=== PATIENT | female | born 1995 | race Caucasian/White ===

== ENCOUNTER 2018-05-26 | Inpatient (IN) | payer BC, OTHER ==
[2018-05-26] MEDS ORDERED: LIDOCAINE 0.5% (PF) 5 MG/ML (50 ML SDV) SQ PRN (00:22)
[2018-05-26] MEDS ORDERED: METHYLERGONOVINE 0.2 MG/ML 1 ML AMP IM PRN (00:22)
[2018-05-26] MEDS ORDERED: OXYTOCIN 10 UNIT/ML 1 ML VIAL IM PRN (00:22)
[2018-05-26] MEDS ORDERED: CARBOPROST TROMETHAMINE 250 MCG/ML 1 ML AMP IM PRN (00:22)
[2018-05-26] MEDS ORDERED: TERBUTALINE 1 MG/ML VIAL SQ PRN (00:22)
[2018-05-26] MEDS ORDERED: OXYTOCIN 30 UNITS/500 ML NS 30 UNIT in SALINE 1 500ML.BAG IV SCH (00:30)
[2018-05-26] MEDS: LACTATED RINGERS 1,000 ML IV SCH ×3 (00:56→10:13)
[2018-05-26 01:04] VITALS: BMI 30.9
[2018-05-26 01:06] LABS: Appearance,Urine Cloudy (Clear); Bilirubin,Urine Negative (Negative); Blood,Urine Negative (Negative); Color,Urine Yellow; Glucose,Urine (UA) Negative (Negative); Ketones,Urine Negative (Negative); Leukocyte Esterase,Urine Trace (Negative); Mucus,Urine Occasional /hpf; Nitrite,Urine Negative (Negative); Protein,Urine Negative (Negative); RBC,Urine 1 /hpf (0-5); Specific Gravity,Urine 1.011 (1.001-1.035); Squamous Epithelial Cell,Urine 2 /hpf (0-4); Urobilinogen,Urine <2.0 mg/dL (<2.0); WBC,Urine 5 /hpf (0-5)
[2018-05-26 01:07] LABS: Basophils # (A) 0.1 k/uL (0-0.2); Basophils % (A) 0 %; Eosinophils # (A) 0.1 k/uL (0-0.7); Eosinophils % (A) 1 %; HCT 38.2 % (34.0-46.0); HGB 12.4 gm/dL (11.4-16.0); Lymphocytes # (A) 2.2 k/uL (1.0-4.8); Lymphocytes % (A) 16 %; MCHC 32.3 g/dL (31.0-37.0); MCV 89.6 fL (80.0-100.0); Mean Platelet Volume 10.6; Monocytes # (A) 0.8 k/uL (0-1.0); Monocytes % (A) 6 %; Neutrophils # (A) 10.5 k/uL (1.3-7.7); Neutrophils % (A) 76 %; Platelet Count 165 k/uL (150-450); RBC 4.27 m/uL (3.80-5.40); RDW 13.8 % (11.5-15.5); WBC 13.9 k/uL (3.8-10.6)
[2018-05-26 01:12] LABS: ALT 25 U/L (9-52); AST 19 U/L (14-36); Blood Urea Nitrogen 5 mg/dL (7-17); LDH 418 U/L (313-618); Uric Acid 3.8 mg/dL (3.7-7.4)
[2018-05-26 01:13] LABS: INR 0.8 (<1.2); Partial Thromboplastin Time 24.2 sec (22.0-30.0); Prothrombin Time 9.3 sec (9.0-12.0)
--- NOTE | 2018-05-26 01:24 | P.HPOB ---
History of Present Illness H&P Date: 05/26/18 Chief Complaint: Leaking fluid. Oligohydramnios This patient is a 22-year-old 1 para 0 female estimated date of confinement 06/03/2018 estimated gestational age 38-6/7 weeks who presents to labor and delivery with complaints of leaking of fluid at 10:30 this evening. Patient's care is per Dr. Mendez and is complicated by oligohydramnios of unknown etiology. Patient had an ultrasound done last that showed an amniotic fluid at 4.1. Patient denies leaking of fluid prior to this evening. is otherwise been uncomplicated. Review of Systems Genitourinary: Reports Menstruation: Reports amenorrhea Past Medical History Past Medical History: No Reported History History of Any Multi-Drug Resistant Organisms: None Reported Past Surgical History: No Surgical Hx Reported Past Anesthesia/Blood Transfusion Reactions: No Reported Reaction Past Psychological History: Anxiety, Depression Smoking Status: Never smoker Past Alcohol Use History: None Reported Past Drug Use History: None Reported - Past Family History Mother Family Medical History: No Reported History Medications and Allergies Home Medications Medication Instructions Recorded Confirmed Type Pnv,Calcium 72/Iron/Folic Acid 1 each PO DAILY 05/26/18 05/26/18 History [ Plus Tablet] Allergies Allergy/AdvReac Type Severity Reaction Status Date / Time Penicillins Allergy Intermediate Rash/Hives Verified 05/26/18 00:21 sulfamethoxazole Allergy Intermediate Vomiting Verified 05/26/18 00:21 [From Bactrim] trimethoprim [From Bactrim] Allergy Intermediate Vomiting Verified 05/26/18 00:21 Exam Vital Signs Temp Pulse Resp BP Pulse Ox 05/26/18 00:27 97.7 F 94 16 151/90 98 Intake and Output 05/25/18 05/25/18 05/26/18 14:59 22:59 06:59 Other: Weight 79.379 kg - OBG Physical Exam Abdomen: bowel sounds normal, no diffuse tenderness, no bruit present, no guarding noted, no hepatomegaly, no splenomegaly, no mass Vulva: both: normal Vagina: normal moisture, no discharge Cervix: no lesion (Cervix is 1 cm and thick.), no discharge Uterus: enlarged (Fundal height most recently in the office was 35 cm) Results Blood type is O positive, rubella immune, RPR nonreactive, hepatitis B is negative, group B strep was negative, ultrasound was shown normal anatomy and oligohydramnios as above. Result Diagrams: 05/26/18 00:56 05/26/18 00:56 Abnormal Lab Results - Last 24 Hours (Table) 05/26/18 05/26/18 05/26/18 Range/Units 00:14 00:56 00:56 WBC 13.9 H (3.8-10.6) k/uL Neutrophils # 10.5 H (1.3-7.7) k/uL BUN 5 L (7-17) mg/dL Creatinine 0.38 L (0.52-1.04) mg/dL Urine Appearance Cloudy H (Clear) Ur Leukocyte Esterase Trace H (Negative) Urine Mucus Occasional H (None) /hpf Assessment and Plan Assessment: This is a pleasant 22-year-old 1 para 0 female 38-6/7 weeks gestation with premature rupture membranes and known oligohydramnios. Patient is not having any significant contractions and therefore we'll proceed with induction of labor with Pitocin per protocol. heart tones are category 1 at this time. We anticipate vaginal delivery. Patient did have one elevated blood pressure on admission therefore I am going to send preeclampsia blood work however there her blood pressure sense of been normal. (1) 39 weeks gestation of Current Visit: Yes Status: Acute Code(s): Z3A.39 - 39 WEEKS GESTATION OF SNOMED Code(s): 06740356 (2) Oligohydramnios Current Visit: Yes Status: Acute Code(s): O41.00X0 - OLIGOHYDRAMNIOS, UNSP TRIMESTER, NOT APPLICABLE OR UNSP SNOMED Code(s): 52403179 (3) Premature rupture of membranes Current Visit: Yes Status: Acute Code(s): O42.90 - CAITLIN ROM, 7TH0 BETW RUPT & ONST LABR, UNSP WEEKS OF GEST SNOMED Code(s): 63990920
[2018-05-26] MEDS ORDERED: BUTORPHANOL 1 MG/ML 1 ML VIAL IV PRN (01:54)
--- NOTE | 2018-05-26 07:23 | P.PN ---
Progress Note - Text Progress Note Date: 05/26/18 Patient is having increased pain from her contractions. heart tones are category 1. Cervix is 2/80/ -2. She is having increased vaginal bleeding at this time is considered bloody show however we will continue to monitor her closely.
--- NOTE | 2018-05-26 07:40 | P.MSEPDOC ---
Presenting Problems - Arrival Data Date of Arrival on Unit: 05/26/18 Time of Arrival on Unit: 00:00 Mode of Transport: Wheelchair - Complaint OB-Reason for Admission/Chief Complaint: Rule Out SROM Medical History - Information : 1 Para: 0 Term: 0 : 0 Abortions: Spontaneous or Elective: 0 Number of Living Children: 0 - Gestational Age Gestational Age by ADI (wks/days): 38 Weeks and 6 Days Review of Systems - Review of Systems Constitutional: No problems Breast: No problems ENT: No problems Cardiovascular: No problems Respiratory: No problems Gastrointestinal: No problems Genitourinary: No problems Musculoskeletal: No problems Neurological: No problems Skin: No problems Vital Signs - Temperature Temperature: 97.7 F Temperature Source: Temporal Artery Scan - Pulse Right Brachial Pulse Rate: 94 Pulse Assessment Method: Automatic Cuff - Respirations Respiratory Rate: 16 Oxygen Delivery Method: Room Air O2 Sat by Pulse Oximetry: 98 - Blood Pressure Right Arm Blood Pressure: 151/90 Blood Pressure Mean: 110 Blood Pressure Source: Automatic Cuff Medical Screen Scoring (Pre) - Cervical Exam Dilation: 1-3 cm = 1 Membranes: Ruptured = 3 - Uterine Contractions Frequency: > 5 minutes apart = 1 Duration: N/A Intensity: N/A - Maternal Vital Signs Maternal Temperature: N/A Maternal Blood Pressure: N/A Signs of Preeclampsia: N/A Maternal Respirations: N/A - Pain Assessment Pain Location and Character: Lower, Abdomen Pain Scale Used: Numeric (1 - 10) Pain Intensity: 1 Pain Description: Cramping Pain Frequency: Intermittent Pain Duration Units: Minutes Pain Behavior: None Exhibited - Maternal Trauma Maternal Trauma: N/A - Assessment Baseline FHR: 140 Heart Rate - NICHD Category: Category I (Normal) = 0 NST: Reactive Position: N/A Station: N/A - Total Score Total Score (Pre): 5 - Level of Risk Level of Risk: Low (0-5) Physician Notification (Pre) - Physician Notified Physician Notified Date: 05/26/18 Physician Notified Time: 00:27 Physician/Practitioner Notifed:: Dr. Griffin Spoke With: Dr. Griffin New Order Received: Yes - Notification Comment Comment: Dr. Griffin given report on pt in tr. Pt c/o. Positive amnisure. Reactive nst. VS with bp of 151/90, 124/81. GBS NEG. MEY level of 4.1 per pt after apt on . Vag. exam of /-2. Orders recieved to admit pt. To obtain PIH labs. To start pitocin. Disposition - Disposition OB Disposition: Admit, LDRP Suite I agree with the RN Medical Screening Exam: Yes Risk & Benefit of care provided described in d/c instruction: Yes Diagnosis: FULL-TERM CAITLIN ROM, ONSET LABOR WITHIN 24 HOURS OF RUPTURE
[2018-05-26] MEDS ORDERED: fentaNYL (PF) 50 MCG/ML 5 ML AMP ONE (10:32)
[2018-05-26] MEDS ORDERED: ROPIVACAINE 5MG/ML 20ML VIAL ONE (10:32)
[2018-05-26] MEDS ORDERED: SODIUM CHLORIDE 0.9% 100 ML BAG ONE (10:32)
[2018-05-26] MEDS ORDERED: CLINDAMYCIN 900 MG in DEXTROSE 5% IN WATER 50 ML IVPB SCH ×2 (14:15)
[2018-05-26] MEDS ORDERED: HYDROCORTISONE 2.5% RECTAL CREAM 30 GM TUBE RECTAL PRN (16:45)
[2018-05-26] MEDS ORDERED: WITCH HAZEL 1 EACH MED..PAD TOPICAL PRN (16:45)
[2018-05-26] MEDS ORDERED: ACETAMINOPHEN TAB 325 MG TAB PO PRN (16:45)
[2018-05-26] MEDS ORDERED: BISACODYL 10 MG SUPP RECTAL PRN (16:45)
[2018-05-26] MEDS ORDERED: diphenhydrAMINE 25 MG CAP PO PRN (16:45)
[2018-05-26] MEDS ORDERED: LANOLIN CREAM 5 GM TUBE TOPICAL PRN (16:45)
[2018-05-26] MEDS ORDERED: diphenhydrAMINE 50 MG/ML 1 ML VIAL IVP PRN (16:45)
[2018-05-26] MEDS ORDERED: ZOLPIDEM 5 MG TAB PO PRN (16:45)
[2018-05-26] MEDS ORDERED: OXYTOCIN 20 UNITS/1000 ML NS 1,000 ML IV SCH (16:45)
[2018-05-26] MEDS ORDERED: BENZOCAINE/MENTHOL SPRAY 1 GM/SPRAY AEROSOL TOPICAL PRN (16:45)
[2018-05-26] MEDS ORDERED: SIMETHICONE 80 MG CHEWABLE PO PRN (16:45)
--- NOTE | 2018-05-26 16:52 | P.PROBDLV ---
Vaginal Delivery Note - . Vaginal Delivery Note: Normal vaginal delivery viable female Apgars 9 and 9 delivery time is 1625 hrs. Please see dictated H&P for intimate details of this patient's admission. Brief summary this is a pleasant 22-year-old 1 para 0 female 38-6/7 weeks gestation admitted to labor and delivery with complaints of leaking of fluid. Patient is a positive amnio sure. Patient is 1 cm and thick and has Pitocin induction of labor per protocol. Patient's labor progresses quite slowly however when she gets to 4 cm she does have an epidural placed with good relief of pain. Patient was given one dose of clindamycin due to prolonged rupture membranes. Labor progresses quickly after 5 cm and she got to complete. Patient that time did have some variable decelerations but these resolved with position changes. Patient was complete and encouraged her to push she pushed for approximately 4 times pushes the head to the perineum. Variables become deeper at this time and therefore a midline episiotomy is made. We have controlled delivery of the infant's head over the perineum. Mouth and nares are bulb suctioned. There is a nuchal cord which is reduced. Gentle downward traction we then have delivery the anterior and posterior shoulder and rest this infant's body. This is a vigorous viable female infant Apgars are 9 and 9 delivery time was 1625 hrs. Infant is late on the mother's abdomen and after the cord is done pulsating is doubly clamped and cut. The cord does appear to be quite thin. Does appear to be trivascular. The placenta is then spontaneously delivered intact and it appears to have a marginal cord insertion. Placenta sent to pathology. Inspection of perineum shows a first-degree lacerations repaired with 3-0 Vicryl usual fashion excellent reapproximation is noted. Estimated blood loss is 100 mL. There are no complications. and mother stable in delivery room.
[2018-05-26] MEDS: IBUPROFEN 600 MG TAB PO PRN (19:58)
[2018-05-26] MEDS: SENNOSIDES-DOCUSATE SODIUM 1 EACH TAB PO SCH (19:59)
[2018-05-27 06:43] LABS: Basophils % (A) 0 %; Eosinophils # (A) 0.3 k/uL (0-0.7); Eosinophils % (A) 2 %; HCT 33.8 % (34.0-46.0); HGB 11.1 gm/dL (11.4-16.0); Lymphocytes # (A) 2.1 k/uL (1.0-4.8); Lymphocytes % (A) 11 %; MCH 29.5 pg (25.0-35.0); MCHC 32.8 g/dL (31.0-37.0); MCV 89.8 fL (80.0-100.0); Mean Platelet Volume 10.2; Monocytes # (A) 1.1 k/uL (0-1.0); Monocytes % (A) 6 %; Neutrophils # (A) 14.8 k/uL (1.3-7.7); Neutrophils % (A) 80 %; Platelet Count 135 k/uL (150-450); RBC 3.77 m/uL (3.80-5.40); RDW 14.2 % (11.5-15.5); WBC 18.5 k/uL (3.8-10.6)
--- NOTE | 2018-05-27 08:46 | P.DS ---
Providers Date of admission: 05/26/18 00:37 Expected date of discharge: 05/27/18 Attending physician: Napoleon Griffin Primary care physician: Carmen Mendez [facility] Course: This is a 22-year-old female 1 para 0 at 38-6/7 weeks who presents with spontaneous rupture of membranes on 05/26/2018. She underwent oxytocin augmentation of labor and did receive 1 dose of antibiotic due to prolonged rupture of membranes. She delivered vaginally a viable female on 05/26/2018 with scores of 9 at 1 minute and 9 at 5 minutes and weight of 6 lbs. 0 oz. Her course has been uncomplicated. She is breast-feeding. Lochia is decreasing. Pain is well-controlled with ibuprofen. Her vital signs are stable. Abdomen is soft with fundus firm and nontender. Extremities show negative Homans. Impression is status post vaginal delivery day #1. Plan is to discharge home today. Routine instructions are given. She will be given a prescription for ibuprofen and a breast pump. She is advised to call the office if she has any further questions or concerns prior to her appointment time. She is advised to follow up in the office in 6 weeks. Procedures: Oxytocin augmentation of labor Spontaneous vaginal delivery of a viable female infant on 05/26/2018 Patient Condition at Discharge: Stable Plan - Discharge Summary New Discharge Prescriptions: New Ibuprofen [Motrin] 600 mg PO Q6HR PRN #60 tab PRN Reason: Mild Pain Or Fever >= 100.5 Continue Pnv,Calcium 72/Iron/Folic Acid [ Plus Tablet] 1 each PO DAILY Discharge Medication List Pnv,Calcium 72/Iron/Folic Acid [ Plus Tablet] 1 each PO DAILY 05/26/18 [History] Ibuprofen [Motrin] 600 mg PO Q6HR PRN #60 tab 05/27/18 [Rx] Follow up Appointment(s)/Referral(s): Carmen Mendez DO [Primary Care Provider] - 6 Weeks Activity/Diet/Wound Care/Special Instructions: Instructions 1. Do not begin any exercise program for 3 weeks. 2. Do not resume sexual relations for 3 weeks or longer if uncomfortable. 3. You may take tub baths or showers at any time. 4. You may use tampons if desired after 3 weeks. 5. Keep the area of episiotomy (stitches) clean and dry. 6. If you are not nursing, wear a good fitting, supportive bra during the day and limit fluid intake for at least 1 week to prevent breast engorgement. 7. Call the office, [phone], within the next week to make appointment for your 6 week checkup if it has not already been made. 8. Report any of the following occurrences to the doctor promptly: a. Heavy, excessive bleeding b. Chills, fever c. Burning or frequency of urination d. Pain or redness and breasts if nursing e. Increasing pain or swelling in episiotomy (stitches). In addition to the above instructions, the following additional should be followed: 1. No heavy lifting or straining (exercising) until after 6 week checkup. 2. Keep abdominal incision clean and dry: You may wear a dressing if more comfortable. 3. Make office appointment for 10 days after going home or as instructed by her doctor. Discharge Disposition: HOME SELF-CARE
[2018-05-27] MEDS: SENNOSIDES-DOCUSATE SODIUM 1 EACH TAB PO SCH ×2 (10:49→20:22)
[2018-05-27] MEDS: IBUPROFEN 600 MG TAB PO PRN ×2 (11:36→21:31)
[2018-05-28 06:36] LABS: Basophils % (A) 0 %; Eosinophils # (A) 0.2 k/uL (0-0.7); Eosinophils % (A) 2 %; HCT 35.5 % (34.0-46.0); HGB 11.4 gm/dL (11.4-16.0); Lymphocytes # (A) 2.6 k/uL (1.0-4.8); Lymphocytes % (A) 19 %; MCH 29.2 pg (25.0-35.0); MCHC 32.1 g/dL (31.0-37.0); MCV 90.9 fL (80.0-100.0); Mean Platelet Volume 10.6; Monocytes # (A) 0.7 k/uL (0-1.0); Monocytes % (A) 5 %; Neutrophils # (A) 9.9 k/uL (1.3-7.7); Neutrophils % (A) 73 %; Platelet Count 134 k/uL (150-450); RDW 14.1 % (11.5-15.5); WBC 13.6 k/uL (3.8-10.6)
[2018-05-28] MEDS: SENNOSIDES-DOCUSATE SODIUM 1 EACH TAB PO SCH (08:26)
[2018-05-28 13:08] VITALS: RESP 18
[2018-05-28] MEDS: IBUPROFEN 600 MG TAB PO PRN (14:53)
[2018-05-28 17:55] VITALS: BP 139/92; PULSE 76; TEMP 98.3
== END 2018-05-28 20:40 | disposition home or self-care (01) | DRG 806 ==
LOC: FBPOP → 4FBP 00:37
PROVIDERS: ADMIT Obstetrics & Gynecology; ATTEND Obstetrics & Gynecology
PROC: 3E033VJ Introduction of Other Hormone into Peripheral Vein, Percutaneous Approach (ICD-10-PCS; principal; 2018-05-26)
PROC: 00HU33Z Insertion of Infusion Device into Spinal Canal, Percutaneous Approach (ICD-10-PCS; principal; 2018-05-26)
PROC: 0W8NXZZ Division of Female Perineum, External Approach (ICD-10-PCS; principal; 2018-05-26)
PROC: 0HQ9XZZ Repair Perineum Skin, External Approach (ICD-10-PCS; principal; 2018-05-26)
PROC: 10E0XZZ Delivery of Products of Conception, External Approach (ICD-10-PCS; principal; 2018-05-26)
PROC: 3E0R3NZ Introduction of Analgesics, Hypnotics, Sedatives into Spinal Canal, Percutaneous Approach (ICD-10-PCS; principal; 2018-05-26)
DX: O42.92 Full-term premature rupture of membranes, unspecified as to length of time between rupture and onset of labor (principal); O41.03X0 Oligohydramnios, third trimester, not applicable or unspecified; Z37.0 Single live birth; O69.81X0 Labor and delivery complicated by cord around neck, without compression, not applicable or unspecified; Z3A.38 38 weeks gestation of pregnancy; O70.0 First degree perineal laceration during delivery; O76 Abnormality in fetal heart rate and rhythm complicating labor and delivery; Z88.0 Allergy status to penicillin; Z88.2 Allergy status to sulfonamides
CPT/HCPCS: 59025; 81001; 82565; 82570; 83615; 84112; 84156; 84450; 84460; 84520; 84550; 85025; 85610; 85730; 86850; 86900; 86901; 88307; 99213